=== PATIENT | female | born 1975 | race Caucasian/White ===

== ENCOUNTER 2022-01-04 06:26 | Day surgery (SDC) | payer OTHER ==
[~2022-01-04 06:26] MED LIST: PRENATAL1 TAB
== END 2022-01-04 19:35 | disposition home or self-care (01) ==
LOC: CIR.AMB 06:26
PROVIDERS: ATTEND Obstetrics & Gynecology
DX: D25.9 Leiomyoma of uterus, unspecified (principal); Z20.822 Contact with and (suspected) exposure to COVID-19; Z86.16 Personal history of COVID-19

== ENCOUNTER 2022-02-12 07:11 | Inpatient (IN) | payer OTHER ==
[~2022-02-12] VITALS: Ht 170.2 cm; Wt 61.2 kg
== END 2022-02-17 10:22 | disposition home or self-care (01) | DRG 743 ==
LOC: OB/GYN 02-15 05:19 → O/R 02-15 05:19 → SURH 02-15 07:00 → OB/GYN 02-15 14:48
PROVIDERS: ADMIT Obstetrics & Gynecology; ATTEND Obstetrics & Gynecology
PROC: 0UT10ZZ Resection of Left Ovary, Open Approach (ICD-10-PCS; 2022-02-15)
PROC: 0UT90ZZ Resection of Uterus, Open Approach (ICD-10-PCS; principal; 2022-02-15 07:00)
DX: D25.1 Intramural leiomyoma of uterus (principal); D25.0 Submucous leiomyoma of uterus; D25.2 Subserosal leiomyoma of uterus; N72 Inflammatory disease of cervix uteri; N80.03 Adenomyosis of the uterus; N80.329 Endometriosis of the posterior cul-de-sac, unspecified depth; N83.12 Corpus luteum cyst of left ovary; N83.02 Follicular cyst of left ovary; Z20.822 Contact with and (suspected) exposure to COVID-19

== ENCOUNTER 2022-03-02 15:52 | Emergency (ER) | payer OTHER ==
[~2022-03-02] VITALS: Ht 170.2 cm; Wt 61.2 kg
== END 2022-03-02 18:07 | disposition home or self-care (01) ==
LOC: ER 15:52
DX: Z90.710 Acquired absence of both cervix and uterus (principal)